=== PATIENT | female | born 1985 | race African-American/Black ===

== ENCOUNTER 2016-09-11 12:49 | Emergency (ER) | payer MEDICAID, OTHER ==
[~2016-09-11] VITALS: Ht 157.5 cm; Wt 81.0 kg
[2016-09-11 12:51] VITALS: BP 162/85; PULSE 75; RESP 12; TEMP 98.6; O2SAT 100
[2016-10-09] MEDS ORDERED: HYDR50TA3 PO (09:41)
[2016-10-09] MEDS ORDERED: MULT-65 PO (09:41)
[2016-10-09] MEDS ORDERED: METO50TA PO (09:41)
[2016-10-09] MEDS ORDERED: HYDR25TA5 PO (09:43)
[2016-11-05] MEDS ORDERED: BLOOD GLUCOSE T1 TES (12:23)
[2016-11-05] MEDS ORDERED: METF500T PO (12:23)
[2016-11-05] MEDS ORDERED: BLOOD GLUCOSE M1 KIT (12:23)
== END 2016-09-11 15:35 | disposition left against medical advice (07) ==
LOC: NED 12:49
DX: R51 Headache (principal)
CPT/HCPCS: 99281